=== PATIENT | male | born 1965 | race Caucasian/White ===

== ENCOUNTER → 2016-05-21 | Outpatient (CLI) | payer BC ==
[~2016-05-21] MED LIST: ASPI81TA28 PO; FEXO-101 PO; FLUO20CA35 PO; LISI-788 PO; MULT-506 PO; OMEG10007 PO; POTA99TA PO
--- NOTE | 2016-05-21 07:49 | DIAGNOSTIC IMAGING REPORT ---
ABDOMINAL ULTRASOUND COMPLETE HISTORY: Generalized abdominal pain.. COMPARISON: None. FINDINGS: Pancreas: The pancreatic head and tail are obscured by overlying bowel gas. The remaining portions of the pancreas are within normal limits. Liver: The liver is echogenic consistent with fatty change. Gallbladder: No gallbladder wall thickening. No gallstones. CBD: 4 mm. Kidneys: No hydronephrosis. Spleen: Normal in size. Aorta: Only the mid portion is identified and appears to be normal in caliber. The remaining aorta is obscured by overlying bowel gas. IVC: Patent. IMPRESSION: 1. Hepatic steatosis. 2. Normal gallbladder. No gallstones. Electronically signed by: Mahesh Gil M.D. 05/21/2016 7:47 AM
== END | disposition home or self-care (01) ==
LOC: C.ULTRBC 06:45
PROVIDERS: ATTEND Internal Medicine Geriatric Medicine
DX: R10.9 Unspecified abdominal pain (principal)

== ENCOUNTER → 2016-09-07 | Outpatient (CLI) | payer BC ==
[2016-09-07 10:50] LABS: BASO % 0.5 %; BASO ABS # 0.03 K/uL (0-0.2); COMPLETE YES; EOS % 2.1 %; HEMATOCRIT 40.6 % (42-52); IG% 0.2 %; LYMPH % 25.2 %; LYMPH ABS # 1.56 K/uL (1.2-3.4); MEAN CELL VOLUME 92.3 fL (80-100); MEAN CORPUSCULAR HEMOGLOBIN 31.1 pg (25-34); MEAN CORPUSCULAR HGB CONC 33.7 g/dl (32-36); MEAN PLATELET VOLUME 10.3 fL (7.4-10.4); MONO % 8.7 %; NEUT % 63.3 %; PLATELET COUNT 192 K/uL (130-400); WHITE BLOOD COUNT 6.19 K/uL (4.8-10.8)
[2016-09-07 11:52] LABS: BLOOD UREA NITROGEN 20 mg/dl (7-18); BUN/CREATININE RATIO 20.3 (10-20); CALCIUM 9.4 mg/dl (8.5-10.1); CARBON DIOXIDE 28 mmol/L (21-32); CHLORIDE 104 mmol/L (98-107); GLUCOSE 90 mg/dl (70-99); POTASSIUM 3.8 mmol/L (3.5-5.1); SODIUM 139 mmol/L (136-145)
[2016-09-07 12:03] LABS: CHOLESTEROL 184 mg/dl (0-200); CHOLESTEROL/HDL RATIO 4.7; HDL CHOLESTEROL 39 mg/dl; LDL CHOLESTEROL CALCULATED 117 mg/dl; TRIGLYCERIDES 141 mg/dl (0-150); VERY LOW DENSITY LIPOPROT CALC 28 mg/dl
== END | disposition home or self-care (01) ==
LOC: C.LABBC 07:39
PROVIDERS: ATTEND Internal Medicine Geriatric Medicine
DX: I10 Essential (primary) hypertension (principal); E78.5 Hyperlipidemia, unspecified; R53.83 Other fatigue; G47.33 Obstructive sleep apnea (adult) (pediatric)